=== PATIENT | female | born 1980 | race Caucasian/White ===

== ENCOUNTER 2018-08-01 14:48 | Emergency (ER) | payer OTHER ==
[~2018-08-01] VITALS: Ht 162.6 cm; Wt 86.2 kg
[2018-08-01 15:06] VITALS: Ht 162.6 cm; Wt 86.2 kg
[2018-08-01 16:09] LABS: BASOPHIL % 0.3 % (0-2); PLATELET COUNT 248 x10^3mcL (130-400); RED CELL DISTRIBUTION WIDTH 13.6 % (11.5-14.5)
[2018-08-01 16:20] LABS: CALCIUM 8.9 mg/dL (8.5-10.1); CARBON DIOXIDE 26.5 mmol/L (21-32); CHLORIDE SERUM 101 mmol/L (98-107); CREATININE SERUM 0.7 mg/dL (0.6-1.0); GFR1 > 60 mL/min; GLUCOSE SERUM 344 mg/dL (74-106); POTASSIUM SERUM 4.2 mmol/L (3.5-5.1); SODIUM SERUM 136 mmol/L (136-145)
[2018-08-01 18:15] LABS: ALBUMIN 3.1 g/dL (3.4-5.0); BILIRUBIN DIRECT 0.07 mg/dL (0.0-0.2); BILIRUBIN TOTAL 0.2 mg/dL (0.20-1.00); TOTAL PROTEIN, SERUM 7.4 g/dL (6.4-8.2)
[2018-08-01 18:43] VITALS: BP 153/92
== END 2018-08-01 18:43 | disposition home or self-care (01) ==
LOC: ED 14:48
PROVIDERS: Emergency Medicine
DX: K80.20 Calculus of gallbladder without cholecystitis without obstruction (principal); E11.9 Type 2 diabetes mellitus without complications
CPT/HCPCS: J1885; J2405; J7030; Q0092

== ENCOUNTER 2018-11-16 04:38 | Emergency (ER) | payer OTHER ==
[~2018-11-16] VITALS: Ht 167.6 cm; Wt 92.5 kg
[2018-11-16 04:49] VITALS: BP 117/71; Ht 167.6 cm; Wt 92.5 kg
== END 2018-11-16 06:48 | disposition home or self-care (01) ==
LOC: ED 04:38
DX: G62.9 Polyneuropathy, unspecified (principal); E11.9 Type 2 diabetes mellitus without complications
CPT/HCPCS: 82962

== ENCOUNTER 2019-05-28 10:34 | Emergency (ER) | payer OTHER ==
[~2019-05-28] VITALS: Ht 162.6 cm; Wt 88.0 kg
[2019-05-28 10:40] VITALS: Ht 162.6 cm; Wt 88.0 kg
[2019-05-28 11:07] LABS: BASOPHIL % 0.4 % (0-2); PLATELET COUNT 260 x10^3mcL (130-400); RED CELL DISTRIBUTION WIDTH 13.4 % (11.5-14.5)
[2019-05-28 11:25] LABS: CALCIUM 8.3 mg/dL (8.5-10.1); CARBON DIOXIDE 24.7 mmol/L (21-32); CHLORIDE SERUM 101 mmol/L (98-107); CREATININE SERUM 0.8 mg/dL (0.6-1.0); GFR1 > 60 mL/min; GLUCOSE SERUM 398 mg/dL (74-106); POTASSIUM SERUM 3.8 mmol/L (3.5-5.1); SODIUM SERUM 138 mmol/L (136-145)
[2019-05-28 11:30] LABS: ALKALINE PHOSPHATASE 128 U/L (46-116); ALT/SGPT 17 U/L (14-59); AST/SGOT 9 U/L (15-37); LIPASE 144 IU/L (73-393); TOTAL PROTEIN, SERUM 7.4 g/dL (6.4-8.2)
[2019-05-28 11:37] LABS: ALBUMIN 2.9 g/dL (3.4-5.0)
[2019-05-28 13:21] VITALS: BP 116/57
== END 2019-05-28 13:21 | disposition home or self-care (01) ==
LOC: ED 10:34
PROVIDERS: Emergency Medicine
DX: R10.9 Unspecified abdominal pain (principal); E11.65 Type 2 diabetes mellitus with hyperglycemia
CPT/HCPCS: 82962; J1815; J1885; J7030

== ENCOUNTER 2019-08-18 13:34 | Emergency (ER) | payer OTHER ==
[~2019-08-18] VITALS: Ht 167.6 cm; Wt 94.8 kg
[2019-08-18 13:38] VITALS: BP 131/69; Ht 167.6 cm; Wt 94.8 kg
== END 2019-08-18 14:42 | disposition home or self-care (01) ==
LOC: ED 13:34
DX: S90.931A Unspecified superficial injury of right great toe, initial encounter (principal); L08.9 Local infection of the skin and subcutaneous tissue, unspecified; E11.65 Type 2 diabetes mellitus with hyperglycemia; X58.XXXA Exposure to other specified factors, initial encounter; Y93.89 Activity, other specified; Y92.89 Other specified places as the place of occurrence of the external cause; Y99.8 Other external cause status
CPT/HCPCS: 82962; Q0092

== ENCOUNTER 2020-06-05 11:00 | Emergency (ER) | payer OTHER ==
[~2020-06-05] VITALS: Ht 165.1 cm; Wt 99.3 kg
[2020-06-05 11:13] VITALS: Ht 165.1 cm; Wt 99.3 kg
[2020-06-05 12:08] LABS: BASOPHIL % 0.5 % (0-2); PLATELET COUNT 294 x10^3mcL (130-400); RED CELL DISTRIBUTION WIDTH 14.3 % (11.5-14.5)
[2020-06-05 12:33] LABS: CALCIUM 8.7 mg/dL (8.5-10.1); CARBON DIOXIDE 25.3 mmol/L (21-32); CHLORIDE SERUM 109 mmol/L (98-107); CREATININE SERUM 0.7 mg/dL (0.6-1.0); GFR1 > 60 mL/min; GLUCOSE SERUM 170 mg/dL (74-106); POTASSIUM SERUM 3.8 mmol/L (3.5-5.1); SODIUM SERUM 133 mmol/L (136-145)
[2020-06-05 12:37] LABS: ALKALINE PHOSPHATASE 84 U/L (46-116); ALT/SGPT 19 U/L (14-59); AST/SGOT 14 U/L (15-37); BILIRUBIN TOTAL 0.4 mg/dL (0.20-1.00); LIPASE 223 IU/L (73-393); TOTAL PROTEIN, SERUM 7.4 g/dL (6.4-8.2)
[2020-06-05 12:40] LABS: ALBUMIN 3.1 g/dL (3.4-5.0)
[2020-06-05 14:39] VITALS: BP 113/75
== END 2020-06-05 14:39 | disposition home or self-care (01) ==
LOC: ED 11:00
PROVIDERS: Emergency Medicine
DX: K80.20 Calculus of gallbladder without cholecystitis without obstruction (principal); K80.50 Calculus of bile duct without cholangitis or cholecystitis without obstruction; E11.9 Type 2 diabetes mellitus without complications; E78.00 Pure hypercholesterolemia, unspecified
CPT/HCPCS: J2405